=== PATIENT | female | born 1990 | race Caucasian/White ===

== ENCOUNTER 2021-02-18 06:54 | Emergency (ER) | payer MEDICAID, SELFPAY ==
--- NOTE | ~2021-02-18 | XR_ITS ---
EXAMINATION: XR chest 2V DATE: 02/18/2021 08:09 INDICATION: Chest pain. TECHNIQUE: Frontal and lateral views of the chest were obtained. COMPARISON: None. FINDINGS: The chest demonstrates clear lungs without pneumonia, pleural effusion, or pneumothorax. Th e heart size is normal. IMPRESSION: 1. No acute cardiopulmonary disease. Reviewed, dictated and finalized at location A. FACTURING ACCOUNTANT
--- NOTE | ~2021-02-18 | CT_ITS ---
EXAMINATION: CTA chest PE protocol DATE: 02/18/2021 10:43 INDICATION: Chest pain. Elevated d-dimer. TECHNIQUE: Computed tomography (CT) pulmonary angiogram of the chest was performed with 100 mL Omnipa que-350 intravenous contrast. Additional 3D reconstructions utilizing coronal maximum intensity proje ction (MIP) were performed. Automated exposure control and iterative reconstruction technique were em ployed. The dose-length product was 1015.20 mGy-cm. COMPARISON: None FINDINGS: Good contrast opacification of the pulmonary arteries. There is mild streak artifact from dense contr ast in the superior vena cava and right atrium. Minimal respiratory motion artifact which does not si gnificantly limit evaluation. No pulmonary embolism. No pneumonia, pulmonary edema, pleural effusion or pneumothorax. Heart size is normal. No pericardial effusion. No pathologically enlarged thoracic l ymphadenopathy. Diffuse hepatic steatosis. Mild thoracic spondylosis. IMPRESSION: 1. No pulmonary embolism or other acute cardiopulmonary disease. Reviewed, dictated and finalized at location B. MENTATION SPECIALIST
[2021-02-18 07:16] VITALS: BP 128/92; PULSE 113; RESP 18; O2SAT 97
--- NOTE | 2021-02-18 07:24 | ECG_ITS ---
Measurements Intervals Petroleum Rate: 114 P: 45 AL: 104 QRS: 40 QRSD: 94 T: 42 QT: 323 QTc: 446 Interpretive Statements SINUS TACHYCARDIA WITH SHORT AL INTERVAL NONSPECIFIC ST & T-WAVE ABNORMALITY- INF/LAT LEADS ABNORMAL ECG Electronically Signed On 02-18-2021 20:08:54 CYBER INCIDENT ANALYST by Barry Mckeon D.O.
--- NOTE | 2021-02-18 07:24 | PC.NURSE ---
0704 pt. to room, no acute distress; breathing and skin signs wnl.
[2021-02-18 08:12] LABS: Basophils Absolute Auto 0.1 K/mm3 (0.0-0.1); Basophils Percent Auto 0.3 % (0.2-1.2); Eosinophils Percent Auto 0.3 % (0-4.4); Hematocrit 40.6 % (37.0-47.0); Immature Granulocyte Absolute 0.09 K/mm3 (0.00-0.031); Immature Granulocyte Percent A 0.6 % (0-0.5); Lymphocytes Absolute Auto 3.15 K/mm3 (0.9-3.2); Lymphocytes Percent Auto 21.3 % (18.3-44.2); Mean Corpuscular HGB Conc 34.5 g/dl (32-36); Mean Corpuscular Hemoglobin 30.7 pg (26-34); Mean Platelet Volume 8.2 fl (7.4-10.4); Monocytes Absolute Auto 0.6 K/mm3 (0.1-0.6); Monocytes Percent Auto 4.3 % (2.6-8.5); Neutrophils Absolute Auto 10.9 K/mm3 (1.3-6.7); Neutrophils Percent Auto 73.2 % (45.5-73.1); Platelet Count Result 499 k/mm3 (150-375); Red Blood Count 4.56 M/mm3 (4.2-5.4); Red Cell Distribution Width 13.5 % (11.5-14.5); White Blood Count 14.8 K/mm3 (4.5-10.0)
[2021-02-18 08:27] LABS: Alanine Aminotransferase 21 U/L (4-35); Albumin Level 4.6 g/dL (3.5-5.1); Alkaline Phosphatase 96 U/L (38-126); Anion Gap 12 mmol/L (8-16); Aspartate Amino Transferase 23 U/L (14-36); Bilirubin,Total 0.4 mg/dL (0.2-1.3); Blood Urea Nitrogen 9 mg/dL (7-17); Calcium 9.5 mg/dL (8.4-10.2); Carbon Dioxide 23 mmol/L (22-30); Chloride 101 mmol/L (98-107); Estimated CRCL calculation 172 ml/min; Estimated Glomerular Filt Rate > 60; Glucose 125 mg/dL (65-110); Potassium 3.5 mmol/L (3.4-5.0); Sodium 136 mmol/L (137-145)
[2021-02-18 08:41] LABS: Troponin I < 0.012 ng/mL (0.000-0.034)
[2021-02-18 09:00] VITALS: BP 121/98; PULSE 78; RESP 18; O2SAT 100
[2021-02-18 09:18] LABS: D Dimer 0.79 ug/mL (<0.48)
[2021-02-18] MEDS: MAG HYDROX/AL HYDROX/SIMETH 30 ML UDC PO (09:42)
[2021-02-18] MEDS: LIDOCAINE HCL 2% VISC SOLN 15 ML UDC 20 ML PO (09:42)
--- NOTE | 2021-02-18 11:02 | ED.CHESTPAIN ---
HPI - Chest Pain General Chief Complaint: Chest Pain Stated Complaint: CP Time Seen by Provider: 02/18/21 08:47 Source: patient History of Present Illness HPI narrative: Patient presents with left-sided chest pain started this morning it starts in her mid sternum and radiates to her left breast and arm. Reports a history of rib pain and panic attacks is unsure if today's symptoms are related but wanted to come to the ER for evaluation. Denies any shortness of breath nausea or vomiting. Denies any prior cardiac history, she denies recent hospitalizations, prior PEs. Reports her heart rate usually fast when she comes to the ER because she is anxious. Related Data Allergies Allergy/AdvReac Type Severity Reaction Status Date / Time gluten Allergy Nausea Verified 02/18/21 07:21 Penicillins Allergy Anaphylaxis Verified 02/18/21 07:21 Sulfa (Sulfonamide Allergy Rash Verified 02/18/21 07:21 Antibiotics) Review of Systems Review of Systems: CONSTITUTIONAL: Denies fever, chills, or sweats. EYES: Denies visual changes, redness, or discharge. ENT: Denies rhinorrhea, congestion, sore throat, or otalgia. CARDIOVASCULAR: Denies palpitations, or edema. RESPIRATORY: Denies cough or dyspnea. GASTROINTESTINAL: Denies abdominal pain, nausea, vomiting, or diarrhea. GENITOURINARY: Denies dysuria or hematuria. SKIN: Denies rash or itching. MUSCULOSKELETAL: Denies back pain, joint pain, or myalgia. NEUROLOGIC: Denies headache, numbness, dizziness, or weakness. PSYCHIATRIC: Denies anxiety or depression. All systems reviewed & are unremarkable except as noted in HPI and below PMFSH Past Medical History Medical History (Updated 02/18/21 @ 11:13 by Jose Cyr MD) Anxiety Social History Social History (Updated 02/18/21 @ 11:07 by Jose Cyr MD) Substance use: never Exam Narrative: GENERAL: Well-appearing, well-nourished, and in no acute distress. HEAD: Normocephalic, atraumatic. EYES: PERRLA and EOMI. ENT: Nares clear, no rhinorrhea or epistaxis. Mucous membranes moist. NECK: Supple. No masses. No JVD CHEST: Clear to auscultation. No respiratory distress. No wheezes rales or rhonchi mild tenderness palpation of the mid sternum HEART: Regular rate and rhythm. No murmur heard. Normal peripheral pulses. ABDOMEN: Soft, nontender, nondistended, normal active bowel sounds. EXTREMITIES: Normal range of motion. No edema. SKIN: Warm, dry, no rash. NEURO: No focal deficits. Alert and oriented x3. PSYCH: Normal mood and affect. Course Reevaluation(s) Reevaluation #1: Patient is resting comfortably he is feeling much improved results and plan reviewed with patient. Patient comfortable with outpatient plan. Vital Signs Vital signs: Vital Signs Pulse Rate 113 H 02/18/21 07:16 Respiratory Rate 18 02/18/21 07:16 Blood Pressure 128/92 H 02/18/21 07:16 Pulse Oximetry 97 02/18/21 07:16 Pulse Rate 78 02/18/21 11:21 Respiratory Rate 18 02/18/21 11:21 Blood Pressure 129/78 02/18/21 11:21 Pulse Oximetry 100 02/18/21 11:21 MDM - Chest Pain MDM Narrative Medical decision making narrative: H&P as above, vs with tachycardia, pt looks clinically well, exam reassuring with reproducible pain, labs with elevated dimer and elevated white count which per patient report is normal for her, img without acute process, additional labs/img considered, symptomatic relief available as needed, on reevaluation pt continues to looks clinically well. Symptoms remain of unclear etiology suspect chest wall pain, dns PE, dissection, ACS, pneumothorax. plan to tx/monitor as op w/ pcm f/u findings/plan discussed with pt, pt agree/comfortable with plan, return precautions given Lab Data Result diagrams: 02/18/21 07:59 02/18/21 07:59 Labs: Lab Results 02/18/21 02/18/21 02/18/21 Range/Units 07:59 07:59 08:55 WBC 14.8 H (4.5-10.0) K/mm3 RBC 4.56 (4.2-5.4) M/mm3 Hgb 14.0 (12.0
[2021-02-18 11:21] VITALS: BP 129/78; PULSE 78; RESP 18; O2SAT 100
== END 2021-02-18 11:23 | disposition home or self-care (01) ==
PROVIDERS: Emergency Provider Emergency Medicine
DX: R07.89 Other chest pain (principal)
CPT/HCPCS: 36415; 71046; 71275; 80053; 81025; 84484; 85025; 85380; 93005; 99284; A9270; Q9967

== ENCOUNTER 2022-04-09 23:03 | Emergency (ER) | payer OTHER, MEDICAID, SELFPAY ==
--- NOTE | ~2022-04-09 | XR_ITS ---
EXAMINATION: XR chest 2V 04/10/2022 01:17 INDICATION: Chest pain PROCEDURE: 2 view chest COMPARISON: 02/18/2021 FINDINGS: The lungs are clear. The cardiomediastinal silhouette is within normal limits. There are no pleural effusions. There is no pneumothorax suspected. IMPRESSION: 1: NO ACUTE CARDIOPULMONARY DISEASE. Reviewed, dictated and finalized at location A. S REPRESENTATIVE [employer]
--- NOTE | ~2022-04-09 | CT_ITS ---
EXAMINATION: CTA chest PE protocol DATE: 04/10/2022 07:58 GEM EXPERT INDICATION: Shortness of breath. Chest pain. TECHNIQUE: Computed tomographic angiography (CTA) of the chest was performed with 100 mL Omnipaque-35 0 intravenous contrast. The dose-length product was 1068.40 mGy-cm. Maximum intensity projection 3D-r econstructions of the aorta and other arteries were constructed by the technologist on a separate wor kstation. Automated exposure control and iterative reconstruction technique were employed. COMPARISON: CT dated 02/18/2021. FINDINGS: Heart size normal. No significant pleural or pericardial effusion. No thoracic lymphadenopa thy. Study is technically adequate without evidence for pulmonary embolism. No pneumothorax. No focal airspace consolidation. No endobronchial lesions. Mild thoracic spondylosis. IMPRESSION: 1. No evidence for pulmonary embolism. No acute cardiopulmonary disease. Reviewed, dictated and finalized at location A. EXPERT
[2022-04-09 23:56] VITALS: BP 132/84; PULSE 122; RESP 20; TEMP 36.7; O2SAT 98
[2022-04-10] VITALS (26 sets, daily range): BP systolic 109–135; BP diastolic 65–93; PULSE 81–119; RESP 8–28; O2SAT 90–100
--- NOTE | 2022-04-10 00:24 | ECG_ITS ---
Rate 108 LA 130 QRSd 93 QT 329 QTc 442 --[place]-- P 50 QRS 23 T 11 SINUS TACHYCARDIA NONSPECIFIC T-WAVE ABNORMALITY- INFERIOR LEADS ABNORMAL ECG COMPARED TO ECG 02/18/2021 07:06:53 NO SIGNIFICANT CHANGES Electronically Signed On 04-10-2022 7:57:04 SYSTEMS APPLICATIONS PROGRAMMING LEAD by Barry SIERRA
[2022-04-10 00:55] LABS: Basophils Percent Auto 0.3 % (0.2-1.2); Eosinophils Percent Auto 0.1 % (0-4.4); Hematocrit 36.8 % (37.0-47.0); Hemoglobin 12.5 g/dL (12.0-15.0); Immature Granulocyte Absolute 0.06 K/mm3 (0.00-0.031); Immature Granulocyte Percent A 0.4 % (0-0.5); Lymphocytes Percent Auto 18.6 % (18.3-44.2); Mean Corpuscular Hemoglobin 29.6 pg (26-34); Mean Corpuscular Volume 87.2 fl (80-100); Mean Platelet Volume 8.6 fl (7.4-10.4); Monocytes Absolute Auto 0.5 K/mm3 (0.1-0.6); Monocytes Percent Auto 3.4 % (2.6-8.5); Neutrophils Absolute Auto 11.2 K/mm3 (1.3-6.7); Neutrophils Percent Auto 77.2 % (45.5-73.1); Platelet Count Result 470 k/mm3 (150-375); Red Blood Count 4.22 M/mm3 (4.2-5.4); Red Cell Distribution Width 14.6 % (11.5-14.5); White Blood Count 14.5 K/mm3 (4.5-10.0)
[2022-04-10 01:04] LABS: Alanine Aminotransferase 20 U/L (6-35); Albumin Level 3.9 g/dL (3.5-5.1); Alkaline Phosphatase 109 U/L (38-126); Anion Gap 8 mmol/L (8-16); Aspartate Amino Transferase 22 U/L (14-36); Bilirubin,Total 0.5 mg/dL (0.2-1.3); Blood Urea Nitrogen 5 mg/dL (7-17); Calcium 8.9 mg/dL (8.4-10.2); Carbon Dioxide 24 mmol/L (22-30); Chloride 105 mmol/L (98-107); Estimated CRCL calculation 171 ml/min; Estimated Glomerular Filt Rate > 60; Glucose 119 mg/dL (65-110); Lipase 51 U/L (23-300); Potassium 3.8 mmol/L (3.4-5.0); Sodium 137 mmol/L (137-145)
[2022-04-10 01:06] LABS: Partial Thromboplastin Time 31.5 SECONDS (22.3-36.8)
[2022-04-10 01:16] LABS: Troponin I < 0.012 ng/mL (0.000-0.034)
[2022-04-10] MEDS: KETOROLAC 30 MG/ML VIAL (*BKC) IV PUSH (01:51)
[2022-04-10] MEDS: SODIUM CHLORIDE 0.9% IV 1,000 ML 999 ML IV CONT (01:51)
--- NOTE | 2022-04-10 04:06 | ED.CHESTPAIN ---
HPI - Chest Pain General Chief Complaint: Chest Pain Stated Complaint: chest pain & SOB Time Seen by Provider: 04/10/22 00:32 History of Present Illness HPI narrative: Patient is a 32-year-old female who presents ER with central chest discomfort. Reports this happens to her during the prater. Worsening over the last couple days. Aching and central moving across left side. Reports mild shortness of breath that did not improve with Ativan. No fevers or chills or sweats. Has recently had a URI with some lymphadenopathy to her neck that has since resolved. Reports symptoms feel similar to when she was told in the past that she had a rib that was causing her problems. Denies productive cough or hemoptysis. Related Data Allergies Allergy/AdvReac Type Severity Reaction Status Date / Time gluten Allergy Nausea Verified 02/18/21 07:21 Penicillins Allergy Anaphylaxis Verified 02/18/21 07:21 Sulfa (Sulfonamide Allergy Rash Verified 02/18/21 07:21 Antibiotics) Review of Systems Review of Systems: All systems reviewed & are unremarkable except as noted in HPI and below Constitutional: Constitutional: Denies chills, Denies fatigue and Denies fever(s) Cardiovascular: Cardiovascular: Reports chest pain, Reports rapid heart rate and Denies radiating jaw, neck or arm pain Respiratory: Respiratory: Denies cough, Reports dyspnea and Denies wheezing Gastrointestinal: Gastrointestinal: Denies abdominal pain, Denies nausea and Denies vomiting PMFSH Past Medical History Medical History (Updated 04/10/22 @ 04:11 by Devendra Bahena MD) Anxiety Surgical History Surgical History (Updated 04/10/22 @ 04:11 by Devendra Bahena MD) No pertinent past surgical history Social History Social History (Updated 02/18/21 @ 11:07 by Jose CyrMD) Substance use: never Exam Narrative: GENERAL: Well-appearing, morbidly obese, and in no acute distress. HEAD: Normocephalic, atraumatic. ENT: Mucous membranes moist. CHEST: Clear to auscultation. No respiratory distress. HEART: Tachycardic and regular. Normal peripheral pulses. ABDOMEN: Soft, nontender, nondistended. EXTREMITIES: Normal range of motion. No edema. SKIN: Warm, dry, no rash. NEURO: Alert and oriented x3. PSYCH: Normal mood and affect. Course Course Emergency Course: Patient resting comfortably. Informed of results. Pain resolved with morphine. Discharge home with anti-inflammatories. Patient verbalized understanding of results and treatment plan. D-dimer was elevated and PE ruled out by CTA. Vital Signs Vital signs: Vital Signs Temperature 98.0 F 04/09/22 23:56 Pulse Rate 122 H 04/09/22 23:56 Respiratory Rate 20 04/09/22 23:56 Blood Pressure 132/84 04/09/22 23:56 Pulse Oximetry 98 04/09/22 23:56 Oxygen Delivery Room Air 04/09/22 23:56 Temperature 98.0 F 04/09/22 23:56 Pulse Rate 81 04/10/22 04:00 Respiratory Rate 19 04/10/22 04:00 Blood Pressure 115/76 04/10/22 03:01 Pulse Oximetry 95 04/10/22 04:00 Oxygen Delivery Room Air 04/10/22 01:03 MDM - Chest Pain MDM Narrative Medical decision making narrative: PERC Rule for Pulmonary Embolism from [facility] on 04/10/2022 All calculations should be rechecked by clinician prior to use RESULT SUMMARY: 1 criteria If any criteria are positive, the PERC rule cannot be used to rule out PE in this patient. INPUTS: Age >=0 ?> 0 = No HR >=00 ?> 1 = Yes O? sat on room air ?> 0 = No Unilateral leg swelling ?> 0 = No Hemoptysis ?> 0 = No Recent surgery or trauma ?> 0 = No Prior PE or DVT ?> 0 = No Hormone use ?> 0 = No Lab Data 04/10/22 00:49 04/10/22 00:49 Labs: Lab Results 04/10/22 04/10/22 04/10/22 Range/Units 00:49 00:49 00:49 WBC 14.5 H (4.5-10.0) K/mm3 RBC 4.22 (4.2-5.4) M/mm3 Hgb 12.5 (12.0-15.0) g/dL Hct 36.8 L (37.0-47.0) % MCV 87.2 (80-100) fl MCH 29.6 (26-34
[2022-04-10 04:09] LABS: Troponin I < 0.012 ng/mL (0.000-0.034)
== END 2022-04-10 04:30 | disposition home or self-care (01) ==
PROVIDERS: Emergency Provider Emergency Medicine
DX: R07.89 Other chest pain (principal); R00.0 Tachycardia, unspecified; R94.31 Abnormal electrocardiogram [ECG] [EKG]
CPT/HCPCS: 36415; 71046; 71275; 80053; 81025; 83690; 84484; 85025; 85380; 85610; 85730; 93005; 96361; 96374; 99284; J1885; J7030; Q9967